=== PATIENT | female | born 2000 | race Two or more races ===

== ENCOUNTER 2024-05-04 14:04 | Outpatient (REF) | payer MEDICAID, OTHER, SELFPAY ==
--- NOTE | ~2024-05-04 | US_ITS ---
EXAMINATION: US DIAGNOSTIC ULTRASOUND BREAST, LEFT CLINICAL INFORMATION: 23-year-old female, Left upper outer quadrant on and off palpable lump and pain. No family history of breast cancer. COMPARISON: None available. TECHNIQUE: Ultrasound of the left breast is performed with real-time valle scale imaging and color Doppler. Attention was given to the upper outer quadrant of the left breast in the region of concern. FINDINGS: There is no focal suspicious finding. There is no solid mass, architectural abnormality, duct ectasia, or edema in the soft tissue planes. There is no cystic abnormality. Only normal dense breast tissue is identified. There is no ultrasonographic correlate. US/US breast LT limited mamm only IMPRESSION: No findings suspicious for malignancy left breast upper outer quadrant. No ultrasonographic correlate to the focus of on and off palpable concern and pain. Recommend clinical management and follow-up. ASSESSMENT: BI-RADS 1: Negative RECOMMENDATION: 1. Patient should be managed based on the clinical impression. Decision to proceed with biopsy should be based on clinical grounds and degree of clinical concern. This patient's information was entered into a reminder system with a target due date for their next mammogram. Electronically signed by: Evans Bowers MD 05/04/2024 02:45 PM EDT
== END 2024-05-04 14:05 | disposition home or self-care (01) ==
LOC: HO.MAMMO 14:04
PROVIDERS: PCP Nurse Practitioner Family; Visit Provider Nurse Practitioner Family
DX: N64.4 Mastodynia (principal)
CPT/HCPCS: 76642

== ENCOUNTER → 2024-05-04 14:30 | Outpatient (BNV) | payer SELFPAY | PROVIDERS: PCP Nurse Practitioner Family; Visit Provider Radiology Diagnostic Radiology | DX: N63.21 Unspecified lump in the left breast, upper outer quadrant (principal) | CPT/HCPCS: 76642 ==